=== PATIENT | male | born 1970 | race Caucasian/White ===

== ENCOUNTER → 2017-10-18 | Outpatient (CLI) | payer OTHER | LOC: FIMAGING 10:27 | PROVIDERS: ATTEND Physician Assistant Medical | DX: Z13.6 Encounter for screening for cardiovascular disorders (principal) ==

== ENCOUNTER → 2017-12-13 | Outpatient (CLI) | payer OTHER ==
[~2017-12-13] MED LIST: IOPAMIDOL (ISOVUE-370) 150 ML BTL IV ONE
== END ==
LOC: FIMAGING 10:13
PROVIDERS: ATTEND Physician Assistant Medical
DX: I25.10 Atherosclerotic heart disease of native coronary artery without angina pectoris (principal)
CPT/HCPCS: Q9967

== ENCOUNTER → 2018-12-26 | Outpatient (CLI) | payer OTHER | LOC: FIMAGING 09:34 | PROVIDERS: ATTEND Physician Assistant Medical | DX: R91.1 Solitary pulmonary nodule (principal); Z87.891 Personal history of nicotine dependence; K76.0 Fatty (change of) liver, not elsewhere classified ==